=== PATIENT | female | born 1960 | race Caucasian/White ===

== ENCOUNTER → 2017-04-27 | Outpatient (CLI) | payer OTHER | LOC: BRMIMAGING 09:43 | DX: Z12.31 Encounter for screening mammogram for malignant neoplasm of breast (principal); N64.59 Other signs and symptoms in breast | CPT/HCPCS: G0202 ==

== ENCOUNTER 2017-05-04 08:03 | Day surgery (SDC) | payer OTHER ==
[2017-05-04] MEDS ORDERED: LIDOCAINE 1% 2 ML INJ ID PRN (08:46)
[2017-05-04] MEDS ORDERED: LR 1,000 ML IV ONE (08:46)
--- NOTE | 2017-05-04 09:40 | PDHPUP ---
History & Physical Update H&P update statement: This history and physical update is based on an assessment of the patient which was completed after admission or registration (within 24 hours), but prior to the surgery/procedure. H&P update: H&P reviewed & patient examined, no change in patient's condition since H&P completed
[2017-05-04] MEDS ORDERED: PROPOFOL 200 MG/20 ML VIAL ONE (10:14)
[2017-05-04] MEDS ORDERED: fentaNYL 100 MCG/2 ML INJ ONE (10:14)
[2017-05-04] MEDS ORDERED: MIDAZOLAM 2 MG/2 ML VIAL ONE (10:14)
[2017-05-04] MEDS ORDERED: SODIUM BICARBONATE 10 MEQ/10 ML SYR IVP ONE (10:20)
[2017-05-04] MEDS ORDERED: LIDOCAINE 1% 300 MG/30 ML SDV ONE (10:20)
[2017-05-04] MEDS ORDERED: BUPIVACAINE 0.5% 30 ML SDV ONE (10:21)
--- NOTE | 2017-05-04 10:26 | PDANEPAE ---
ANE Past Medical History - Cardiovascular History Hx Hypertension: Yes Hx Arrhythmias: Yes Hx Chest Pain: No Hx Coronary Artery / Peripheral Vascular Disease: No Hx CHF / Valvular Disease: No Hx Palpitations: Yes - Pulmonary History Hx COPD: No Hx Asthma/Reactive Airway Disease: No Hx Recent Upper Respiratory Infection: No Hx Oxygen in Use at Home: No - Neurologic History Hx Cerebrovascular Accident: No Hx Seizures: No Hx Dementia: No - Endocrine History Hx Diabetes: No - Renal History Hx Renal Disorders: No - Liver History Hx Hepatic Disorders: No - Neurological & Psychiatric Hx Hx Neurological and Psychiatric Disorders: Yes - Cancer History Hx Cancer: No - Congenital Disorder History Hx Congenital Disorders: No - GI History Hx Gastrointestinal Disorders: Yes ANE Review of Systems - Exercise capacity METS (RN): 5 METS ANE Patient History - Allergies Allergies/Adverse Reactions: hydromorphone [From Dilaudid] Allergy (Verified 05/03/17 12:14) Vomiting Penicillins Allergy (Verified 05/03/17 12:14) soy Allergy (Verified 05/03/17 12:14) - Home Medications Home Medications: Escitalopram Oxalate 05/03/17 [Last Taken 05/04/17 06:00] Herbals/Supplements -Info Only 05/03/17 [Last Taken Unknown] Nexium 05/03/17 [Last Taken 05/04/17 06:00] Pravastatin Sodium 05/03/17 [Last Taken 05/02/17 20:00] - NPO status NPO Since - Liquids (Date): 05/03/17 NPO Since - Liquids (Time): 23:30 NPO Since - Solids (Date): 05/03/17 NPO Since - Solids (Time): 21:00 - Smoking Hx Smoking Status: Never smoked - Family Anes Hx Family Hx Anesthesia Complications: NEG ANE Labs/Vital Signs - Vital Signs Blood Pressure: 154/81 Heart Rate: 75 Respiratory Rate: 16 O2 Sat (%): 91 Height: 167.64 cm Weight: 74.843 kg ANE Physical Exam - Airway Neck exam: FROM Mallampati Score: Class 2 Mouth exam: normal dental/mouth exam - Pulmonary Pulmonary: no respiratory distress - Cardiovascular Cardiovascular: regular rate and rhythym ANE Anesthesia Plan Anesthesia Plan: GA w LMA
[2017-05-04] MEDS ORDERED: NALOXONE HCL 0.4 MG/ML INJ IVP PRN (10:27)
[2017-05-04] MEDS ORDERED: OXYCODONE/APAP 5/325 TAB PO PRN (10:37)
[2017-05-04] MEDS ORDERED: fentaNYL 100 MCG/2 ML INJ IVP PRN (10:37)
[2017-05-04] MEDS ORDERED: ONDANSETRON 4 MG/2 ML VIAL IVP PRN (10:37)
[2017-05-04] MEDS ORDERED: ACETAMINOPHEN 500 MG TAB PO PRN (10:37)
[2017-05-04] MEDS ORDERED: HYDROCODONE/APAP 5/325 TAB PO PRN (10:37)
[2017-05-04] MEDS ORDERED: LR 500 ML IV PRN (10:37)
[2017-05-04] MEDS ORDERED: ALBUTEROL 3 ML DEYVIAL IH PRN (10:37)
[2017-05-04] MEDS ORDERED: METOCLOPRAMIDE 10 MG/2 ML VIAL IVP PRN (10:37)
[2017-05-04] MEDS ORDERED: PROMETHAZINE HCL 25 MG/ML INJ IVP PRN (10:37)
[2017-05-04] MEDS ORDERED: DEXAMETHASONE 4 MG/ML VIAL IVP PRN (10:37)
--- NOTE | 2017-05-04 10:49 | POSTOPPROG ---
Post Op Note Date of Operation: 05/04/17 Surgeon: Griffin Barrett Anesthesia: LMA Pre-op Diagnosis: abnormal breast exam, rgith nipple Post-op Diagnosis: same Indication: same Procedure: right breast and nipple biopsy Inf/Abcess present in the surg proc area at time of surgery?: No EBL: Minimal
[2017-05-04] MEDS ORDERED: LIDOCAINE 2% 5 ML SDV ONE (10:51)
[2017-05-04] MEDS ORDERED: DEXAMETHASONE 4 MG/ML VIAL ONE (10:51)
[2017-05-04] MEDS ORDERED: METOCLOPRAMIDE 10 MG/2 ML VIAL ONE (10:51)
[2017-05-04] MEDS ORDERED: ONDANSETRON 4 MG/2 ML VIAL ONE (10:51)
--- NOTE | 2017-05-04 11:04 | POSTANESTH ---
Post Anesthetic Evaluation Cardiovascular Status: Normal, Stable Respiratory Status: Normal, Stable Level of Consciousness/Mental Status: Mildly Sleepy, Arousable Pain Control: Adequate, Prn Tx Ordered Nausea/Vomiting Control: Adequate, Prn Tx Ordered Complications Possibly Related to Anesthesia: None Noted
--- NOTE | 2017-05-04 11:31 | GOP ---
[f rep st] OPERATIVE REPORT DATE OF OPERATION: SURGEON: Griffin Barrett MD PREOPERATIVE DIAGNOSIS: Abnormal breast exam, right nipple. POSTOPERATIVE DIAGNOSIS: Abnormal breast exam, right nipple. PROCEDURE PERFORMED: Right nipple and breast biopsy. FINDINGS: INDICATIONS: 56-year-old female with erythema, scaling and some bleeding from the right nipple suggestive of Paget disease. DESCRIPTION OF PROCEDURE: General anesthetic with an LMA. The breast scrubbed with ChloraPrep, draped in usual sterile fashion. A wedge was taken from the papilla out onto the areola at the 9 o'clock position, including the nipple skin and the underlying breast stroma. Bleeding points were controlled with cautery. The wound was closed with 4-0 Vicryl and then interrupted 5-0 Prolene sutures. Gauze and Tegaderm were used as a dressing. Patient tolerated the procedure well. /[id number]/MODL MTDD
[2017-05-04 11:51] VITALS: RESP 16
[2017-05-04 11:56] VITALS: O2SAT 94
[2017-05-04 12:26] VITALS: BP 155/100; PULSE 65; TEMP 98.2
== END 2017-05-04 12:28 | disposition home or self-care (01) ==
LOC: FSGY 08:03
PROVIDERS: ATTEND Surgery
PROC: 0HBWXZZ Excision of Right Nipple, External Approach (ICD-10-PCS; principal; 2017-05-04 09:45)
DX: C50.011 Malignant neoplasm of nipple and areola, right female breast (principal); Z88.0 Allergy status to penicillin
CPT/HCPCS: J1100; J2250; J2405; J2704; J2765; J3010

== ENCOUNTER → 2017-05-14 | Outpatient (CLI) | payer OTHER ==
[~2017-05-14] MED LIST: GADOBUTROL 10 ML VIAL IVP ONE
== END ==
LOC: FIMAGING 07:46
PROVIDERS: ATTEND Surgery
DX: C50.011 Malignant neoplasm of nipple and areola, right female breast (principal)
CPT/HCPCS: 0159T; A9585; C8908

== ENCOUNTER → 2018-08-15 | Outpatient (CLI) | payer OTHER | LOC: BRMIMAGING 13:22 | PROVIDERS: ATTEND Family Medicine | DX: Z12.31 Encounter for screening mammogram for malignant neoplasm of breast (principal); Z85.3 Personal history of malignant neoplasm of breast; Z90.11 Acquired absence of right breast and nipple ==